=== PATIENT | male | born 1965 | race Caucasian/White ===

== ENCOUNTER 2017-03-17 05:55 | Day surgery (SDC) | payer OTHER ==
[2017-03-14 13:37] VITALS: BMI 27.1
[2017-03-17] MEDS ORDERED: ONDANSETRON 4 MG/2 ML VIAL IVP ONE (06:21)
[2017-03-17] MEDS ORDERED: SODIUM CHLORIDE 0.9% 1,000 ML IV SCH (06:21)
[2017-03-17] MEDS ORDERED: MIDAZOLAM 2 MG/2 ML VIAL IV PRN (06:21)
[2017-03-17] MEDS ORDERED: LACTATED RINGERS 1,000 ML IV SCH (06:21)
[2017-03-17] MEDS ORDERED: HYDROmorphone 0.5 MG/0.5 ML SYRINGE IVP PRN (06:21)
[2017-03-17] MEDS ORDERED: LIDOCAINE 1% INJ 10MG/ML (20 ML MDV) ONE ×2 (07:56)
[2017-03-17] MEDS ORDERED: PHENYLEPHRINE-0.9% NACL SYG 1 MG/10 ML SYRINGE ONE (07:56)
[2017-03-17] MEDS ORDERED: ROCURONIUM BROMIDE 10 MG/ML 10 ML VIAL IV ONE ×2 (07:56)
[2017-03-17] MEDS ORDERED: FUROSEMIDE 10 MG/ML 2 ML VIAL ONE (07:56)
[2017-03-17] MEDS ORDERED: PROPOFOL 10 MG/ML 20 ML VIAL IV ONE ×2 (07:56)
[2017-03-17] MEDS ORDERED: SUCCINYLCHOLINE CHLORIDE 100 MG/5 ML SYR IV ONE ×2 (07:56)
[2017-03-17] MEDS ORDERED: fentaNYL (PF) 50 MCG/ML 2 ML AMP ONE ×2 (07:56)
[2017-03-17] MEDS ORDERED: ISOPROTERENOL 250 MCG/1.25 ML SYR IV ONE (07:56)
[2017-03-17] MEDS ORDERED: NEOSTIGMINE 1 MG/ML 10 ML VIAL ONE (07:56)
[2017-03-17] MEDS ORDERED: MIDAZOLAM 2 MG/2 ML VIAL ONE ×2 (07:56)
[2017-03-17] MEDS ORDERED: HEPARIN SODIUM,PORCINE 10,000 UNIT/ML 1 ML VIAL ONE ×2 (07:56)
[2017-03-17] MEDS ORDERED: HYDROmorphone (PF) 1 MG/ML ONE ×2 (07:56)
[2017-03-17] MEDS ORDERED: GLYCOPYRROLATE 0.2 MG/ML 2 ML VIAL ONE (07:56)
[2017-03-17] MEDS ORDERED: HEPARIN SODIUM,PORCINE 5,000 UNIT/ML 1 ML VIAL ONE (07:56)
[2017-03-17] MEDS ORDERED: LIDOCAINE 2% INJ 20 MG/ML SQ ONE (08:26)
[2017-03-17] MEDS ORDERED: SODIUM CHLORIDE 0.9% 1,000 ML IV ONE ×2 (08:27→10:52)
[2017-03-17] MEDS ORDERED: HEPARIN SODIUM (1,000 UNIT/ML) 1,000 UNIT in SODIUM CHLORIDE 0.9% 1,000 ML IRRIGATION ONE ×2 (08:37→13:06)
[2017-03-17] MEDS ORDERED: HYDROcodone/APAP 5-325MG 1 EACH TAB PO PRN (13:41)
[2017-03-17] MEDS ORDERED: ACETAMINOPHEN IV (For NPO) 1,000 MG in EMPTY BAG 1 BAG IVPB ONE (13:41)
[2017-03-17] MEDS ORDERED: ACETAMINOPHEN IV (For NPO) 1,000 MG/100 ML VIAL IVPB ONE (14:59)
--- NOTE | 2017-03-17 15:59 | CE ---
CARDIAC ELECTROPHYSIOLOGY REPORT Silvio Nascimento is a 51-year-old, male patient, who has a history of persistent atrial fibrillation and has undergone atrial fibrillation ablation several years back at [facility]. At that time PVI roof line and mitral isthmus line was made. He had persistent atrial fibrillation and about 2 years back I performed an atrial fibrillation ablation on him with the following features: 1. Redo PVI at an antral level. 2. Roof line made a little more anteriorly. 3. Atrial flutter ablation. At that time intraoperatively there was recovery of pulmonary potentials along the anterior right-sided veins. Atrial fibrillation was terminated along the roof. In the anterior haley of the left-sided veins was also arrhythmogenic with mechanical contact and this was carefully ablated at that time. Then the atrial flutter ablation was difficult and the patient had a subcu tricuspid pouch, mid isthmus pouch and subeustachian pouch. Finally bidirectional block was obtained at that time. He has had a recurrence of atrial tachycardia almost 1/2 to 2 years after his 2nd ablation he was brought in for an EP study since he was breaking through on flecainide. Patient was brought to the EP lab in a fasting state. Written informed consent was obtained prior to the procedure. The procedure was performed under general anesthesia. He was in sinus rhythm at the start of the study. We initiated 2 venous sheaths in the right femoral vein, 2 venous sheaths in the left femoral vein and right femoral artery line for hemodynamic monitoring and sampling. Blood pressure was in the normal range all throughout the procedure. ACT maintained above 300. Sinus cycle length 818 milliseconds, OH interval 180 milliseconds, QRS 84 milliseconds, QTc 384 milliseconds, AH interval 84 ms, HV interval 65 milliseconds. Please note that venous sheath was placed in the left axillary vein for coronary sinus pacing and recording. CS catheter was placed from here for stability. It was very difficult to get a stable position of the coronary sinus catheter from the groins. Burst stimulation was performed in the left atrium and very short bursts of atrial tachycardia were induced lasting for a few beats only. High-dose Isuprel was used and short bursts and somewhat occasional longer bursts of atrial tachycardia with concentric activation was noted but this was self terminated and was induced only very occasionally with burst stimulation at 230 milliseconds just after Isuprel withdrawal. Left to right transseptal catheterization was performed. Intracardiac echocardiography was performed. There was no left atrial appendage clot. The interatrial septum was identified and anatomic mapping of left atrium and the right atrial isthmus was performed using intracardiac echo. The voltage mapping of the left atrium and pulmonary veins was performed. The results of the voltage mapping was as follows: 1. The roof line had recovered completely. 2. The anterior inferior aspect of the right inferior antral line of the of the right- sided veins showed independent recovery especially outside and the antrum of the outside the antrum just along the edge of the previous RF line where there was capture along with pacing and electrogram was noted. Within the pulmonary veins there was no activity. In addition, the left anterior haley of the left-sided veins showed also small areas of recovery, which was documented both with electrograms and with high output pacing. Therefore, first right-sided pulmonary vein isolation was performed along the anterior antrum from the roof down to the 6 o'clock position. Next the left-sided veins were ablated anteriorly and posteriorly both veins were completely isolated even at the margins. Following this detailed mapping was performed and the veins but also the antrum of the veins were completely isolated and there was none capture all along the current and previous RF lines both exit and entrance block was documented. Burst stimulation was once again performed. Extra stimulation was performed. Short bursts of atrial tachycardia were induced but they were not sustained,. This occurred with a burst stimulation at 230 milliseconds just off Isuprel on Isuprel recovery. The roof line was then made somewhat towards the roof along the anterior aspect and this line was interrogated with pacing maneuvers as well as with 100% grid as well as with an 85% grid and this was a complete anatomic line with non capture all along. Following that on Isuprel burst stimulation was once again performed and no atrial fibrillation or atrial tachycardia was induced other than the few premature beats and atrial triplets. The catheter and sheath were withdrawn from the left atrium. Heparin was discontinued and the right atrial isthmus was mapped. There appeared to be a recovery in the subeustachian ridge area and RF ablation along this and previous atrial flutter line was made with specific emphasis on the subeustachian pouch. Bidirectional block was noted and that 3D mapping was also performed to confirm complete block. At the end of the procedure all catheters were removed. The patient was transferred back to the recovery. RESULT: 1. Successful redo pulmonary vein isolation at a very antral/left atrial level along the anterior aspect of both the right-sided veins and the left-sided veins. 2. Linear ablation along the roof which had completely recovered. 3. Right atriocaval tricuspid atrial flutter or fibrillation. 4. After the roof line was made no runs of atrial tachycardia were induced other than short atrial triplets and quadruplets. Patient tolerated procedure well without any acute complications. At the end of the procedure intracardiac echo demonstrated normal LV function with a normal pericardium. MMODL / IJN: [id number] /
[2017-03-17] MEDS: COLCHICINE 0.6 MG TAB PO SCH (20:48)
[2017-03-17] MEDS: FLECAINIDE 50 MG TAB PO SCH (20:48)
[2017-03-17] MEDS: FAMOTIDINE 20 MG TAB PO SCH (20:48)
[2017-03-18] MEDS: ACETAMINOPHEN TAB 325 MG TAB PO PRN ×2 (06:45→11:49)
[2017-03-18] MEDS ORDERED: SODIUM CHLORIDE 0.9% 250 ML IV ONE (07:55)
[2017-03-18] MEDS: COLCHICINE 0.6 MG TAB PO SCH (07:57)
[2017-03-18] MEDS: FLECAINIDE 50 MG TAB PO SCH (07:57)
[2017-03-18] MEDS: FAMOTIDINE 20 MG TAB PO SCH (07:57)
--- NOTE | 2017-03-18 08:09 | P.DS ---
Providers Attending physician: Ganga Rivera Primary care physician: [facility] Course: Patient is doing reasonably well. He has no dizziness or lightheadedness no palpitations. Heart rate in the 90s. He diuresed quite well after 20 mg IV of Lasix last night. He does have bruising the right groin and a very small hematoma but is able to walk around. He does have a bit of a sore throat. On examination Blood pressure is 131/71 mmHg respirations are normal pulse rate in the 90s afebrile 90 8V Fahrenheit Breath sounds are clear no rhonchi no crackles Heart sounds S1 and S2 are normal no rub no gallop No JVD Right groin is healed well and a small hematoma with bruising in the left groin. Impression Recurrent atrial fibrillation refractory to antiarrhythmic therapy and symptomatic Status post pulmonary vein isolation Status post atrial flutter RF ablation His clinical arrhythmia was the roof tachycardia and he underwent delineate left atrial ablation on the roof Thereafter no nonsustained arrhythmias could be induced Plan If he is stable by 6 PM he can go home thereafter and follow-up with me in about a week Colchicine and Pepcid for 5 days, continue all other medications without any changes Flecainide and Toprol for 6 weeks and then stop Anticoagulation for 2-3 months and then stop Discussed the patient discussed with the nurse Patient Condition at Discharge: Stable Plan - Discharge Summary New Discharge Prescriptions: No Action Rivaroxaban [Xarelto] 20 mg PO DAILY Flecainide [Tambocor] 50 mg PO Q12HR Metoprolol Succinate [Toprol XL] 25 mg PO DAILY Discharge Medication List Flecainide [Tambocor] 50 mg PO Q12HR 03/14/17 [History] Metoprolol Succinate [Toprol XL] 25 mg PO DAILY 03/14/17 [History] Rivaroxaban [Xarelto] 20 mg PO DAILY 03/14/17 [History]
[2017-03-18] MEDS ORDERED: METOPROLOL SUCCINATE (ER) 25 MG TAB.ER.24H PO SCH (09:00)
[2017-03-18 11:46] VITALS: PULSE 76
[2017-03-18 17:00] VITALS: BP 117/70; RESP 16; TEMP 97.6
[2017-03-18] MEDS ORDERED: RIVAROXABAN 10 MG TAB PO SCH (18:00)
== END 2017-03-18 17:57 | disposition home health service (06) ==
LOC: CATHEP 05:55 → 6SEL 13:40 → CATHEP 03-18 17:57
PROVIDERS: ATTEND Internal Medicine Clinical Cardiac Electrophysiology
DX: I48.1 Persistent atrial fibrillation (principal); I48.3 Typical atrial flutter; Z79.01 Long term (current) use of anticoagulants; Z82.49 Family history of ischemic heart disease and other diseases of the circulatory system; G47.33 Obstructive sleep apnea (adult) (pediatric); Z79.899 Other long term (current) drug therapy; Z87.891 Personal history of nicotine dependence
CPT/HCPCS: 85347; 93623; 93662; 93613; 93656; 93657; C1769 ×3; C1894 ×3; C1730 ×3; C1731; C1759; C1893; C1732; J2001 ×2; J2250; J1644 ×3; J1940; J2710; J2405; J3010; J1170; J0131; J2370; J0330; J2704

== ENCOUNTER 2017-08-15 10:29 | Day surgery (SDC) | payer OTHER ==
[2017-08-11 14:47] VITALS: BMI 27.1
[2017-08-15 11:45] LABS: Anion Gap 9 mmol/L; Blood Urea Nitrogen 15 mg/dL (9-20); Calcium 9.4 mg/dL (8.4-10.2); Carbon Dioxide 26 mmol/L (22-30); Chloride 106 mmol/L (98-107); Glucose 97 mg/dL (74-99); Potassium 4.4 mmol/L (3.5-5.1); Sodium 141 mmol/L (137-145)
[2017-08-15 11:52] LABS: HCT 45.7 % (39.0-53.0); HGB 15.4 gm/dL (13.0-17.5); MCH 28.1 pg (25.0-35.0); MCHC 33.7 g/dL (31.0-37.0); MCV 83.6 fL (80.0-100.0); Platelet Count 182 k/uL (150-450); RBC 5.46 m/uL (4.30-5.90); RDW 12.5 % (11.5-15.5); WBC 8.4 k/uL (3.8-10.6)
[2017-08-15] MEDS ORDERED: diphenhydrAMINE 50 MG/ML 1 ML VIAL ONE (12:12)
[2017-08-15] MEDS ORDERED: ONDANSETRON 4 MG/2 ML VIAL ONE (12:12)
[2017-08-15] MEDS ORDERED: MIDAZOLAM 2 MG/2 ML VIAL ONE (12:12)
[2017-08-15] MEDS ORDERED: HEPARIN SODIUM,PORCINE 10,000 UNIT/ML 1 ML VIAL ONE (12:12)
[2017-08-15] MEDS ORDERED: fentaNYL (PF) 50 MCG/ML 2 ML AMP ONE (12:12)
[2017-08-15] MEDS ORDERED: PROTAMINE SULFATE 10 MG/ML 5 ML VIAL IV ONE (12:12)
[2017-08-15] MEDS ORDERED: ISOPROTERENOL 250 MCG/1.25 ML SYR IV ONE (12:12)
[2017-08-15] MEDS ORDERED: HEPARIN SODIUM,PORCINE 5,000 UNIT/ML 1 ML VIAL ONE (12:12)
[2017-08-15] MEDS ORDERED: LIDOCAINE URO-JET JELLY 2% 5 ML KIT ONE (12:15)
[2017-08-15] MEDS ORDERED: LIDOCAINE URO-JET JELLY 2% 5 ML KIT URETHRAL ONE (12:25)
[2017-08-15 12:31] LABS: Lymphocytes # (M) 1.68 k/uL (1.0-4.8); Monocytes # (M) 0.76 k/uL (0-1.0); Neutrophils # (M) 5.96 k/uL (1.3-7.7); Neutrophils % (M) 71 %; Nucleated Red Blood Cells 0 /100 WBC (0-0); Total Cells Counted 100
[2017-08-15] MEDS: LIDOCAINE 2% INJ 20 MG/ML SQ ONE ×2 (12:50→12:57)
[2017-08-15] MEDS ORDERED: IV FLUID CONTINUATION 900 ML IV ONE (12:50)
[2017-08-15] MEDS ORDERED: HEPARIN SODIUM (1,000 UNIT/ML) 1,000 UNIT in SODIUM CHLORIDE 0.9% 1,000 ML IRRIGATION ONE (13:00)
[2017-08-15] MEDS ORDERED: HEPARIN SOD,PORK IN 0.45% NACL 25,000 UNIT in 0.45% NACL 1 500ML.BAG IV ONE (13:39)
[2017-08-15] MEDS ORDERED: SODIUM CHLORIDE 0.9% 500 ML IV ONE (17:12)
[2017-08-15] MEDS ORDERED: ACETAMINOPHEN TAB 325 MG TAB PO PRN ×2 (17:42→17:43)
[2017-08-15] MEDS ORDERED: HYDROcodone/APAP 5-325MG 1 EACH TAB PO PRN (17:43)
[2017-08-15] MEDS ORDERED: ACETAMINOPHEN IV (For NPO) 1,000 MG in EMPTY BAG 1 BAG IVPB ONE (17:43)
--- NOTE | 2017-08-15 17:58 | P.PCN ---
Preoperative Diagnosis: Procedure planned Diagnostic EP study and efficacy ablation for atrial tachycardia Indication for the procedure Sustained atrial tachycardia with RVR, symptomatic and drug refractory Patient has undergone ablation for atrial fibrillation in the past with complete and durable isolation of all 4 pulmonary veins which was proven at a follow-up study, atrial flutter ablation, linear ablation along the roof of the left atrium Patient presents with a post atrial fibrillation atrial tachycardia De john, new atrial tachycardia #1 Multiple simultaneous atrial tachycardias within the left atrium Broadly focal atrial tachycardia on the anterior aspect of the left atrium just outside the left atrial appendage, cycle length 230 ms Successful ablation and termination of tachycardia Second underlying tachycardia at a cycle length of 270 ms Repeat 3-D mapping of the left atrium De john, new atrial tachycardia #2 Focal atrial tachycardia just outside the inferior aspect of the left atrial appendage very close to the mitral annulus, cycle length 270 ms Successful ablation in termination of tachycardia and resumption of sinus rhythm Left atrial roof line, redo, complete anatomic line on 100%. And non-capture at high output along the RF line Voltage mapping of all pulmonary veins All pulmonary veins were quiescent Long procedure involving 3-D electro-anatomic mapping both activation mapping and voltage paced mapping of the right atrium, coronary sinus and multiple maps of the left atrium as the tachycardia changed its character Procedures performed Comprehensive diagnostic EP study with attempted arrhythmia induction CS pacing and recording Programmed solution following Isuprel 3-D mapping of the right atrium, coronary sinus and the left atrium Multiple left atrial maps made as the tachycardia changed its character Left and right transseptal catheterization Intracardiac echo Increase procedure services as explained above Anesthesia: MAC Condition: stable Disposition: observation
[2017-08-15] MEDS: LACTATED RINGERS 1,000 ML IV SCH (18:51)
[2017-08-15] MEDS: SODIUM CHLORIDE 0.9% 1,000 ML IV SCH (18:51)
--- NOTE | 2017-08-15 18:56 | CE ---
CARDIAC ELECTROPHYSIOLOGY REPORT Silvio Nascimento is a 51-year-old male patient who has had an atrial fibrillation ablation with pulmonary vein isolation, atrial flutter ablation roof line and mitral isthmus line at [facility] with Dr. Faria several years back. He had recurrence of atrial fibrillation. I performed an atrial flutter ablation followed by pulmonary vein isolation and roof line only. Mitral isthmus line was not made. Subsequently he had a recurrence of atrial tachycardia and was found to have recurrent atrial flutter. At that time, the pulmonary veins were , but the roof line had a gap and this was successfully ablated. He presented to the office with palpitations, shortness of breath and was found to have a drug refractory atrial tachycardia, symptomatic with RVR and persistent. He was brought in for an EP study in mapping of atrial tachycardia. PROCEDURE: The patient is brought to the EP lab in a fasting state. Written informed consent was obtained prior to the procedure. The left shoulder area was prepped and draped as per protocol. Venous sheaths placed in the left axillary vein. Via this a decapolar catheter was positioned in the coronary sinus for coronary sinus pacing and recording. Concentric activation was noted. The patient was in tachycardia. Cycle length of about 227-230 milliseconds. Venous sheaths were placed in the right and left femoral veins and via these diagnostic and mapping ablation catheters were placed sequentially. Catheters were placed in the high right atrium, his bundle area RV, right atrium and left atrium. A PentaRay catheter was first used to map the right atrium. 3D activation mapping of the right atrium revealed a broad septal activation. There was no evidence for atrial flutter. The coronary sinus was then mapped and the activation was noted in the distal coronary sinus, even though the activation was concentric. By conventional activation, the activation was concentric on the CS pulse. Left to right transseptal catheterization was performed. Intracardiac echocardiography was performed. The interatrial septum was identified. RA pressure was 20 x 16 mmHg and LA pressure was 27 x 16 mmHg. Intracardiac 3D electro anatomic mapping using intracardiac echo and activation mapping was performed, later scar based voltage mapping was also performed. Multiple maps of the left atrium were performed. The initial activation map revealed a broad area of focal activation just outside the anterior border of the left atrial appendage. The cycle length of the tachycardia was about 227-230 milliseconds. RF ablation at this location, multiple RF ablations resulted in the cycle length changing to 270 milliseconds. However, the activation pattern in the coronary sinus did not change. Next repeat activation mapping was performed and this time the entire left atrial appendage had very early signals. There was a very broad area of early activation in the entire left atrial appendage. Scar mapping for /voltage mapping was performed in the left atrium and a gap was noted in the roof of the left atrium where the previous RF line had been made. Entrainment mapping at this site resulted in the post pacing interval that was about 20 milliseconds greater than the tachycardia cycle length. Hence, roof line was then made and completed and the line was completed anatomically and confirmed on 100% grid. There were no gaps. Following that, later once the patient was in sinus rhythm, high output paced mapping was performed to confirm non capture along the entire line. However, the tachycardia even after making the roof line still continued and mapping of the left atrial appendage was performed. Diastolic potentials were noted along the mitral anulus just below and outside the inferior pole of the left atrial appendage. The patient had a very large left atrial appendage. These diastolic signals were targeted and a single RF application resulted in termination of the tachycardia. Following that, bullous lesions applied around the site. This was quite close to the mitral, this was at the mitral anulus, just outside the inferior pole of the left atrial appendage on the anterolateral aspect of the mitral anulus in the MARIAH view. Following that, an EP study was performed. CS pacing was performed. High right atrial pacing was performed. RV pacing was performed. AH interval was 93 milliseconds, HV interval was 58 milliseconds. The baseline UT interval was 241 milliseconds. Sinus cycle length of 691 milliseconds. High-dose Isuprel was used and no arrhythmias induced. Pacing was performed from the coronary sinus as well as from the RV in the high right atrium. No other tachycardias induced. VA Wenckebach block was between 350- 400 milliseconds. Voltage mapping also revealed that the pulmonary veins were quiescent once again. RESULTS: Simultaneous two atrial tachycardias along the anterior border of the left atrium just outside the appendage and the second simultaneous tachycardia at the mitral anulus, both which was successfully ablated. The roof line was also completed as the post pacing interval was at multiple cycle lengths suggested re-entry through the gap in the roof line. The patient tolerated the procedure well without any acute complications. IV heparin was administered through the procedure and this was reversed at the end of the procedure. PLAN: 1. Continue flecainide 50 mg twice daily. Reduce dose of metoprolol to half tablet today and continue Xarelto for a minimum of 2 more months. 2. Complete avoidance of alcohol and compliance with CPAP mask. This was explained to the patient's . 3. It was explained to the patient's that these 2 atrial tachycardias were new and de Namita had not been seen during prior EP studies. MMODL / IJN: [id number] /
[2017-08-15] MEDS: FLECAINIDE 50 MG TAB PO SCH (20:22)
[2017-08-15] MEDS ORDERED: RIVAROXABAN 20 MG TAB PO SCH (21:00)
[2017-08-15 23:42] VITALS: RESP 16
[2017-08-16] MEDS: LACTATED RINGERS 1,000 ML IV SCH (08:18)
[2017-08-16] MEDS: SODIUM CHLORIDE 0.9% 1,000 ML IV SCH (08:18)
[2017-08-16] MEDS: FLECAINIDE 50 MG TAB PO SCH (08:20)
[2017-08-16] MEDS ORDERED: METOPROLOL SUCCINATE (ER) 25 MG TAB.ER.24H PO SCH (09:00)
[2017-08-16] MEDS ORDERED: RIVAROXABAN 20 MG TAB PO SCH (09:00)
[2017-08-16 11:38] VITALS: BP 108/67; PULSE 85; TEMP 98.2
--- NOTE | 2017-08-16 11:56 | P.DS ---
Providers Attending physician: Ganga Rivera Primary care physician: [facility] Course: He is doing well from a cardiac standpoint He denies any chest discomfort or undue shortness of breath dizziness or palpitations Lying comfortably in bed, also ablating in the hallways. Groin is healed well heart sounds are normal no murmurs no gallops no rubs breath sounds are clear no rhonchi no crackles Abdomen soft nontender Extremities warm no edema Normal heart rate and blood pressure Impression Broad area of focal atrial tachycardia anterior LA wall outside left atrial appendage Focal atrial tachycardia mitral annulus just below the lower pole of the left atrial appendage Left atrial roof line Pulmonary veins were mapped and were quiescent History of Persistent atrial fibrillation, all 4 pulmonary veins were quiescent even of the last evaluation History of regular alcohol use Obstructive sleep apnea Suggest Continue flecainide 50 mg twice daily Reduced dose of metoprolol by half Continue xarelto fundic evaluation for a minimum of 2 more months Complete abstinence from alcohol Compliance with sleep apnea mask Follow-up with Dr. Garcia in about 2-3 weeks Plan - Discharge Summary Discharge Rx Participant: Yes New Discharge Prescriptions: Continue Rivaroxaban [Xarelto] 20 mg PO HS Flecainide [Tambocor] 50 mg PO Q12HR Metoprolol Succinate [Toprol XL] 25 mg PO DAILY Discharge Medication List Flecainide [Tambocor] 50 mg PO Q12HR 03/14/17 [History] Metoprolol Succinate [Toprol XL] 25 mg PO DAILY 03/14/17 [History] Rivaroxaban [Xarelto] 20 mg PO HS 03/14/17 [History] Follow up Appointment(s)/Referral(s): Ganga Rivera MD [STAFF PHYSICIAN] - 2 Weeks Activity/Diet/Wound Care/Special Instructions: Post EP study - Ablation instructions 1. Keep access sites dry for 2 days. 2. No heavy lifting or straining for 2 days. 3. Avoid bending the hips repeatedly for 2 days. 4. You may go up and down stairs slowly Call if the following is noted 1. Bleeding, increasing swelling or pain at the access sites. 2. Increasing chest discomfort, especially upon taking a deep breath. 3. Increasing shortness of breath, at rest or with exertion. 4. Undue cough / phlegm 5. Difficulty or pain while swallowing. 6. Pain or change in color in the extremities. 7. Fever, chills, rigors. 8. Increasing headache or neurologic symptoms. 9. Dizziness, fainting, palpitations No changes in medications Complete abstinence from alcohol use Follow-up with Dr. Jose franklin 2-3 weeks Continue anticoagulation for the next 2 months Discharge Disposition: HOME SELF-CARE
== END 2017-08-16 14:00 | disposition home or self-care (01) ==
LOC: CATHEP 10:29 → 3OBS 17:10 → CATHEP 08-16 14:00
PROVIDERS: ATTEND Internal Medicine Clinical Cardiac Electrophysiology
DX: I47.1 Supraventricular tachycardia (principal); I48.1 Persistent atrial fibrillation; I48.3 Typical atrial flutter; Z79.01 Long term (current) use of anticoagulants; Z87.891 Personal history of nicotine dependence; G47.33 Obstructive sleep apnea (adult) (pediatric); Z82.49 Family history of ischemic heart disease and other diseases of the circulatory system; Z79.899 Other long term (current) drug therapy
CPT/HCPCS: 85347; 93462; 93623; 93662; 93613; 93653; 80048; 85025; C1894; C1769 ×3; C1730; C1731; C1759; C1893; C1732; J2001; J2250; J2720; J1200; J1644 ×4; J2405; J3010